=== PATIENT | female | born 2005 | race Caucasian/White ===

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

== ENCOUNTER 2024-09-13 22:15 | Observation (INO) | payer MEDICAID, SELFPAY ==
[2024-09-13 22:17] VITALS: BP 129/76; PULSE 59; RESP 18; TEMP 36.7; O2SAT 100; BMI 38.5
[2024-09-14] VITALS (10 sets, daily range): BP systolic 114–158; BP diastolic 64–109; PULSE 53–90; RESP 17–18; TEMP 36.6–36.8; O2SAT 94–100; BMI 38.5
[2024-09-14] MEDS: ondansetron 2 mg/ML SDV 2 mL 4 MG IVP (03:05)
[2024-09-14] MEDS: ketorolac 30 mg/mL INJ IVP (03:05)
[2024-09-14 03:24] LABS: Basophils # 0.1 10^3/uL (0.0-0.1); Basophils % 0.3 %; Hematocrit 35.5 % (36-47); Lymphocytes # 1.4 10^3/uL (0.8-4.8); Lymphocytes % 8.1 %; Mean Corpuscular HGB Conc 27.3 g/dL (30-55); Mean Corpuscular Hemoglobin 18.3 pg (27-33); Mean Corpuscular Volume 67.1 fl (85-98); Mean Platelet Volume 8.5 fL (7.4-10.4); Monocytes # 0.6 10^3/uL (0.2-0.9); Monocytes % 3.3 %; Neutrophils # 14.77 10^3/uL (1.8-7.7); Neutrophils % 87.8 %; Nucleated Red Blood Cells % 0 %; Platelet Count 637 10^3/cmm (157-399); Red Blood Count 5.29 10^6/uL (3.85-5.65); Red Cell Distribution Width 17.4 % (12.1-15.1); White Blood Count 16.82 10^3/uL (3.29-11.43)
--- NOTE | 2024-09-14 03:29 | W.ED.ABDPA2 ---
HPI - Abdominal Pain General: Chief Complaint: Abdominal Pain Stated Complaint: Gall bladder stones pain in ribs going up in back Time Seen by Provider: 09/14/24 02:39 History of Present Illness: 19-year-old female who says she has been diagnosed with gallstones. She presents with right upper quadrant and epigastric pain radiating to her back. She states she has had the pain for around 12 hours or more. This is the longest bout she has had. She has an appointment with surgery on 09/24 for consultation. She has vomited once. No fever. No diarrhea. No history of abdominal surgery. Related Data Date of Last Menstrual Period: 07/15/24 Home Medications ?Medication ?Instructions ?Recorded ?Confirmed ibuprofen 800 mg tablet 800 mg PO Q8H PRN Pain 09/14/24 09/14/24 levothyroxine 75 mcg tablet 75 mcg PO DAILY 09/14/24 09/14/24 Allergies Allergy/AdvReac Type Severity Reaction Status Date / Time No Known Allergies Allergy Verified 08/14/19 11:16 PFS ED PFSH: Social History (Updated 09/14/24 @ 07:29 by Marcus Roque MD) Smoking and tobacco/nicotine status: never used tobacco/nicotine Alcohol intake: current Alcohol intake frequency: few times a week Substance/Drug Use: former Date of last use: Rare Former substance use details: Says smoking weed makes her sick edibles are okay but she does not use much Additional social history: Patient vapes daily. She wants DNR status as discussed today on 09/14/2024 with Marcus Roque MD Female Reproductive History: Date of last menstrual period: 07/15/24 Physical Exam Const: COMMON NORMALS: no acute distress GENERAL APPEARANCE: cooperative; not ill appearing and not frail appearing HENMT: COMMON NORMALS: normocephalic, atraumatic and Normal external nose present HEAD & SCALP: normocephalic and atraumatic FACE & SINUS: normal facial exam and face symmetric NOSE: Normal external nose present Eye: COMMON NORMALS: Equal, round and reactive pupils present and EOMs intact bilaterally PUPIL: Yes Equal, round and reactive pupils present Neck/C-Spine: GENERAL: Yes trachea midline Chest: CHEST: Yes Symmetrical chest wall rise Resp: COMMON NORMALS: normal respiratory effort, No retractions, No use of accessory muscles and clear to auscultation bilaterally AUSCULTATION: clear to auscultation bilaterally Cardio: COMMON NORMALS: regular rate and regular rhythm RATE: regular rate RHYTHM: regular rhythm GI: COMMON NORMALS: Soft to palpation INSPECTION: Yes normal to inspection AUSCULTATION: Yes normoactive bowel sounds PALPATION: Yes Soft to palpation, Yes Tenderness to palpation present (GI) (Epigastric) and No Guarding due to palpation present (GI) Extremity: COMMON NORMALS: no pedal edema Neuro: ANGI COMA SCALE: document GCS findings Angi coma scale eye opening: Spontaneous [place] coma scale verbal response: Orientated [place] coma scale motor response: Obey commands [place] coma scale total score: 15 SENSORY EXAM: Yes extremities (intact) Psych: COMMON NORMALS: speech normal SPEECH: Yes normal speech Skin: COMMON NORMALS: no rashes or lesions noted GENERAL SKIN EXAM: no rashes or lesions noted Course Vital Signs: Vital signs: Vital Signs Temperature 98.3 F 09/15/24 04:08 Pulse Rate 72 09/15/24 04:08 Respiratory Rate 18 09/15/24 04:08 Blood Pressure 116/75 09/15/24 04:08 Pulse Oximetry 95 09/15/24 04:08 Oxygen Delivery Me thod Room Air 09/14/24 15:51 MDM - Abdominal Pain Medical Decision Making Pain is improved currently. She is given IV Toradol and Zofran. Laboratories pending. White blood cell count is 17, 87% neutrophils. Hemoglobin is 9.7. Lipase is 2900. CRP however is only 8.3. Liver enzymes are slightly elevated, but bilirubin is normal at 1.1. CT of the abdomen pelvis is pending. CT shows uncomplicated pancreatitis. The patient will be admitted. Hospitalist is aware and will see the patient. Lab Data 09/14/24 03:18 09/14/24 03:18 Labs/Radiology: Radiology Impressions Abdomen/Pelvis CT 09/14/24 04:40 IMPRESSION: Acute uncomplicated interstitial pancreatitis. Abdomen Ultrasound 09/14/24 07:18 IMPRESSION: Multiple gallstones with borderline gallbladder wall thickening Cholangiopancreatography MRI 09/14/24 16:20 IMPRESSION: 1. Pancreatic edema with fluid tracking along the dula-nmvnkoa-kkbc-right peritoneal reflections consistent with acute pancreatitis. 2. No evidence of choledocholithiasis. 3. Cholelithiasis without CT evidence of cholecystitis. Laboratory Results WBC 16.82 10^3/uL (3.29-11.43) H 09/14/24 03:18 RBC 5.29 10^6/uL (3.85-5.65) 09/14/24 03:18 Hgb 9.70 g/dL (11.27-16.99) L 09/14/24 03:18 Hct 35.5 % (36-47) L 09/14/24 03:18 MCV 67.1 fl (85-98) L 09/14/24 03:18 MCH 18.3 pg (27-33) L 09/14/24 03:18 MCHC 27.3 g/dL (30-55) L 09/14/24 03:18 RDW 17.4 % (12.1-15.1) H 09/14/24 03:18 Plt Count 637 10^3/cmm (157-399) H 09/14/24 03:18 MPV 8.5 fL (7.4-10.4) 09/14/24 03:18 Neut % (Auto) 87.8 % 09/14/24 03:18 Lymph % (Auto) 8.1 % 09/14/24 03:18 [place] % (Auto) 3.3 % 09/14/24 03:18 Eos % (Auto) 0.0 % 09/14/24 03:18 Baso % (Auto) 0.3 % 09/14/24 03:18 Neut # (Auto) 14.77 10^3/uL (1.8-7.7) H 09/14/24 03:18 Lymph # (Auto) 1.4 10^3/uL (0.8-4.8) 09/14/24 03:18 [place] # (Auto) 0.6 10^3/uL (0.2-0.9) 09/14/24 03:18 Eos # (Auto) 0.0 10^3/uL (0.0-0.8) 09/14/24 03:18 Baso # (Auto) 0.1 10^3/uL (0.0-0.1) 09/14/24 03:18 Nucleated RBC % (auto) 0 % 09/14/24 03:18 Nucleated RBCs # 0.0 /100WBC 09/14/24 03:18 Sodium 138 mmol/L (136-145) 09/14/24 03:18 Potassium 4.2 mmol/L (3.5-5.1) 09/14/24 03:18 Chloride 99 mmol/L (98-107) 09/14/24 03:18 Carbon Dioxide 25 mmol/L (22-29) 09/14/24 03:18 Anion Gap 18.2 (5-19) 09/14/24 03:18 BUN 8 mg/dL (6-20) 09/14/24 03:18 Creatinine 0.6 mg/dL (0.5-0.9) 09/14/24 03:18 GFR Calculation 126.2 mL/min (90-130) 09/14/24 03:18 Glucose 102 mg/dL (65-115) 09/14/24 03:18 Calculated Osmolality 285 mOsm/kg (285-295) 09/14/24 03:18 Calcium 9.8 mg/dL (8.5-10.5) 09/14/24 03:18 Total Bilirubin 1.1 mg/dL (0.15-1.2) 09/14/24 03:18 AST 144 U/L (0-32) H 09/14/24 03:18 ALT 79 U/L (0-33) H 09/14/24 03:18 Alkaline Phosphatase 144 U/L (35-105) H 09/14/24 03:18 C-Reactive Protein 8.3 mg/L (0.0-4.9) H 09/14/24 03:18 Total Protein 9.3 g/dL (6.6-8.7) H 09/14/24 03:18 Albumin 4.6 g/dL (3.5-5.2) 09/14/24 03:18 Globulin 4.7 g/dL (1.3-4.6) H 09/14/24 03:18 Triglycerides 55 mg/dL (0-150) 09/14/24 03:18 Lipase 2863 U/L (13-60) H 09/14/24 03:18 HCG, Qual Negative (Negative) 09/14/24 03:18 Urine Color Dark yellow (Yellow) A 09/13/24 10:04 Urine Appearance Clear (CLEAR) 09/13/24 10:04 Urine pH 6.5 (5-7) 09/13/24 10:04 Ur Specific [place] 1.063 (1.005-1.030) H 09/13/24 10:04 Urine Protein 1+ (Negative) A 09/13/24 10:04 Urine Glucose (UA) Negative (Normal) 09/13/24 10:04 Urine Ketones Trace (Negative) 09/13/24 10:04 Urine Blood Negative (Negative) 09/13/24 10:04 Urine Nitrate Negative (Negative) 09/13/24 10:04 Urine Bilirubin 1+ (Negative) H 09/13/24 10:04 Urine Urobilinogen 2.0 mg/dL (Negative) H 09/13/24 10:04 Ur Leukocyte Esterase Negative (Negative) 09/13/24 10:04 Urine RBC 0-4 /hpf (0-2) H 09/13/24 10:04 Urine WBC 0-4 /hpf (0-5) H 09/13/24 10:04 Ur Squamous Epith Cells 0-4 /hpf (0-5) H 09/13/24 10:04 Amorphous Sediment Not Reportable 09/13/24 10:04 Urine Bacteria Trace /hpf (NONE) 09/13/24 10:04 Hyaline Casts 2.46 /lpf 09/13/24 10:04 Hepatitis C Antibody Non-reactive (Nonreactive) 09/14/24 03:18 HIV 1&2 Ab & HIV 1 Ag Non-reactive (Non-Reactiv) 09/14/24 03:18 HIV 1&2 Antibody Non-reactive (Non-Reactiv) 09/14/24 03:18 All radiology interpretation(s) finalized by discharge Discharge Plan Discharge Patient Disposition: Admitted As Inpatient Admit Provider: Marcus Roque Clinical Impression: Pancreatitis Condition: Stable Coding Level of Care Code ED Etymology Professor for Fabiola Crystal
[2024-09-14 04:31] LABS: Alanine Aminotransferase 79 U/L (0-33); Albumin Level 4.6 g/dL (3.5-5.2); Alkaline Phosphatase 144 U/L (35-105); Aspartate Amino Transferase 144 U/L (0-32); Blood Urea Nitrogen 8 mg/dL (6-20); C Reactive Protein 8.3 mg/L (0.0-4.9); Calcium 9.8 mg/dL (8.5-10.5); Carbon Dioxide 25 mmol/L (22-29); Creatinine Clr Calc Pharmacy 184.5856; Globulin 4.7 g/dL (1.3-4.6); Glomerular Filtration Rate 126.2 mL/min (90-130); Glucose 102 mg/dL (65-115); Total Bilirubin 1.1 mg/dL (0.15-1.2); Total Protein 9.3 g/dL (6.6-8.7)
[2024-09-14 04:40] LABS: Lipase 2863 U/L (13-60)
--- NOTE | 2024-09-14 04:40 | CTR_ITS ---
PROCEDURE INFORMATION: Exam: CT Abdomen And Pelvis With Contrast Exam date and time: 09/14/2024 4:56 AM Age: 19 years old Clinical indication: Pain and abnormal findings; Abnormal lab test; Elevated lipase and elevated liver enzymes and elevated wbc; Abdominal pain; Ruq/epigastric pain with elevated wbc, lipase, and liver enzymes. ; Additional info: Ruq and epigastric pain TECHNIQUE: Imaging protocol: Computed tomography of the abdomen and pelvis with contrast. Radiation optimization: All CT scans at this facility use at least one of these dose optimization techniques: automated exposure control; mA and/or kV adjustment per patient size (includes targeted exams where dose is matched to clinical indication); or iterative reconstruction. Contrast material: OMNI 350; Contrast volume: 100 ml; Contrast route: INTRAVENOUS (IV); COMPARISON: No relevant prior studies available. RADIATION DOSE METRICS: Total DLP (mGy-cm): 1012.25 FINDINGS: Liver: Normal appearance of the liver. Gallbladder and biliary ducts: No calcified stones or ductal dilation. Pancreas: Peripancreatic fat stranding, predominantly about the pancreatic body and tail. No necrosis. No ductal dilation. No drainable fluid collection. Spleen: Unremarkable. Adrenal glands: Unremarkable. Kidneys and ureters: No hydronephrosis. Stomach and bowel: No obstruction. No mucosal thickening. Appendix: Normal appendix. Intraperitoneal space: No free air. No significant fluid collection. Vasculature: Unremarkable. Lymph nodes: No enlarged lymph nodes. Urinary bladder: Unremarkable as visualized. Reproductive: Unremarkable as visualized. Bones/joints: Unremarkable. No acute fracture. Soft tissues: See Pancreas finding. CT/CT abdomen pelvis w con* [id number] IMPRESSION: Acute uncomplicated interstitial pancreatitis.
[2024-09-14 04:41] LABS: HCG, Serum Qual Negative (Negative)
[2024-09-14] MEDS: iohexol 350 mg/mL 500 mL Btl (per mL) IV (04:57)
[2024-09-14 05:49] LABS: Anion Gap 18.2 (5-19); Chloride 99 mmol/L (98-107); Osmolality Calculated 285 mOsm/kg (285-295); Potassium 4.2 mmol/L (3.5-5.1); Sodium 138 mmol/L (136-145)
--- NOTE | 2024-09-14 07:18 | USR_ITS ---
PROCEDURE INFORMATION: Exam: US Abdomen, Limited; Right Upper Quadrant Exam date and time: 09/14/2024 2:34 PM Age: 19 years old Clinical indication: Condition or disease; Pancreatic condition; Pancreatitis; Additional info: Pancreatitis. Look for gallstones TECHNIQUE: Imaging protocol: Real time ultrasound of the abdomen with image documentation. Limited exam focused on the right upper quadrant. COMPARISON: CT abdomen pelvis w con* [id number] 09/14/2024 4:56 AM FINDINGS: Liver: Normal. No masses. Gallbladder: Multiple gallstones. Borderline thickening of the gallbladder wall at 3 mm Biliary ducts: Normal. No stones. No dilation. Pancreas: Obscured by overlying bowel. Right kidney: Normal. No mass. No hydronephrosis. US/US abdomen limited [id number] IMPRESSION: Multiple gallstones with borderline gallbladder wall thickening
--- NOTE | 2024-09-14 07:20 | P.HP_ITS ---
Providers/Chief Complaint 2 Admitting Physician: Marcus Roque MD Chief Complaint: Gall bladder stones pain in ribs going up in back History of Present Illness Yamini Savage is a 19 year old female with history of episodic abdominal pain after eating or bedtime for about a year. She states that typically lasts only 2 to 3 hours with her waiting it out or taking ibuprofen. She is not certain that ibuprofen helps but thinks that psychologically it is at least doing something. Pain is notably brought on by eating beef for spicy food but less with eating chicken. Patient states that for the last 12 hours prior to presentation to the emergency department she had chills hot flashes sweats and 8/10 epigastric pain now down to 4/10. She had been to [facility] where ultrasound showed gallstones but her CT scan done today showed pancreatitis without gallstones. Patient is not an alcoholic and has about 2 beverages with [address] weekly[address] Fuentes noted her LFTs to be elevated AST 144 ALT 79 alk phos 144 bilirubin 1.1 lipase 2863 and has made her n.p.o. and referred her for admission. Patient states she has had weight loss this year 300 pounds down to 236 just not eating well and getting nausea after eating she reports bad GERD for which she takes Tums but has not taken a PPI. Past surgical history none family history mom is an addict to everything. Patient wants DNR status as discussed today she states that she is not particularly depressed but has some depression. She also just does not want a chance of having brain injury or going through CPR. I talked with her briefly about the risks and benefits. She denies suicidal ideation Review of Systems 2 Narrative: General positive for weight loss reported 64 pounds in the last year. She has had f chills hot flashes and sweats but no fevers CV no chest pain palpitations or edema Respiratory no shortness of breath cough wheezing GI positive for nausea just before vomiting but not nausea all the time. This seems to be worse with food especially beef or spicy food. 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 or discharge Neuro no seizures strokes limb weakness Medications/Allergies Allergies Allergy/AdvReac Type Severity Reaction Status Date / Time No Known Allergies Allergy Verified 08/14/19 11:16 PFSH Acute 2 PFSH: Social History (Updated 09/14/24 @ 07:29 by Marcus Roque MD) Smoking and tobacco/nicotine status: never used tobacco/nicotine Alcohol intake: current Alcohol intake frequency: few times a week Substance/Drug Use: former Date of last use: Rare Former substance use details: Says smoking weed makes her sick edibles are okay but she does not use much Additional social history: Patient vapes daily. She wants DNR status as discussed today on 09/14/2024 with Marcus Roque MD Female Reproductive History: Date of last menstrual period: 07/15/24 Vitals/I&O/Wt Last Vital Signs Temp 98.1 F 09/13/24 22:17 Pulse 70 09/14/24 06:21 Resp 18 09/14/24 03:05 BP 151/109 09/14/24 06:21 Pulse Ox 100 09/14/24 07:11 O2 Del Method Room Air 09/14/24 07:11 Weight last 48 hrs Weight 108.136 kg Physical Exam 2 Narrative: General Well-developed well-nourished obese female in no acute cardiopulmonary stress CV regular rate and rhythm Lungs clear to auscultation bilaterally Abdomen positive bowel tones but diminished she has mild epigastric tenderness but does report pain Mood and affect appropriate good eye contact Data 09/14/24 03:18 09/14/24 03:18 A&P PDMP PDMP Reviewed: Not Reviewed Attestations 2 Medical Necessity Statement*: Patient will be admitted to the hospital with bowel rest and IV fluids and pain control anticipate to span greater than 2 midnights Coding Level of Care Code 29160 Time Spent (min) 55
[2024-09-14 10:16] LABS: Bilirubin Urine 1+ (Negative); Blood Urine Negative (Negative); Glucose Urine UA Negative (Normal); Ketones Urine Trace (Negative); Leukocyte Esterase Urine Negative (Negative); Nitrate Urine Negative (Negative); Protein Urine 1+ (Negative); Urine Appearance Clear (CLEAR); Urine Color Dark Yellow (Yellow); pH Urine 6.5 (5-7)
[2024-09-14 10:25] LABS: Add Urine Microscopic? YES; Bacteria Urine TRACE /hpf; RBC Urine 0-4 /hpf (0-2); Specific Gravity, Urine 1.063 (1.005-1.030); Squamous Epithelial Cell Urine 0-4 /hpf (0-5); WBC Urine 0-4 /hpf (0-5)
[2024-09-14 10:26] LABS: Hyaline Casts Urine 2.46 /lpf
[2024-09-14] MEDS: pantoprazole 40 mg SDV IVP (12:41)
[2024-09-14] MEDS: enoxaparin 40 mg/0.4 mL Syringe SUBCUT (12:41)
[2024-09-14] MEDS: sodium chlor 0.9% + KCl 20 mEq 20 MEQ/1,000 ML BAG 125 MEQ IV ×2 (12:41→21:14)
--- NOTE | 2024-09-14 14:28 | PC.NURSE ---
Pt has a positive suicide risk assessment. States, I don't have a plan, but I wouldn't care if it happened. States dying is an ongoing thought and has been since she was 14. States she has had approximately six suicide attempts by OD. States she struggled academically--particularly math but was unable to receive help and feelings spiraled from there. Wishes to locate counselor but keeps putting it off. Flat affect. States parents both struggle with mental health issues but neither has received treatment. Dr Chatman notified.
--- NOTE | 2024-09-14 16:20 | MRR_ITS ---
PROCEDURE INFORMATION: Exam: MR Abdomen Without Contrast, Biliary System Exam date and time: 09/14/2024 4:47 PM Age: 19 years old Clinical indication: Abdominal pain; Localized; Upper; Additional info: Gallstone pancreatitis, assess for biliary obstrcution TECHNIQUE: Imaging protocol: MR of the abdomen without contrast. Exam focused on the biliary system and pancreatic ducts. Routine 3D-MRCP images were acquired and processed without radiologist supervision. COMPARISON: CT abdomen pelvis w con* [id number] 09/14/2024 4:56 AM FINDINGS: Liver: No mass. Gallbladder and biliary ducts: Gallstones are identified within the gallbladder. No definitive gallbladder wall thickening. No evidence of pericholecystic inflammatory change. No evidence of intra or extrahepatic ductal dilatation. No filling defects along the course of the common bile duct to suggest choledocholithiasis. Pancreas: Dnsz-no-zrmyfqpo peripancreatic edema consistent with history of pancreatitis. Spleen: The spleen is normal. Intraperitoneal space: Risk-ap-joodnpgk free fluid tracking along the left retroperitoneal reflection related to pancreatitis. No fluid collection. MR/MR MRCP [id number] IMPRESSION: 1. Pancreatic edema with fluid tracking along the mzii-zcqigrf-tgrb-right peritoneal reflections consistent with acute pancreatitis. 2. No evidence of choledocholithiasis. 3. Cholelithiasis without CT evidence of cholecystitis.
--- NOTE | 2024-09-14 16:21 | PM.MISC ---
Miscellaneous Note Purpose of Documentation: Labs and H&P reviewed from this morning. Patient with gallstone pancreatitis. Continue current management with IV fluids, pain control with morphine and as needed hydrocodone with as needed Toradol. Maintain n.p.o. status. MRCP ordered. Of elevated alkaline phosphatase, borderline gallbladder wall thickening noted on ultrasound. Check triglyceride level. Resume levothyroxine 75 mg p.o. daily
[2024-09-14 16:37] LABS: Triglycerides 55 mg/dL (0-150)
[2024-09-14 19:23] LABS: HIV 1 & 2 Antibody Non-Reactive (Non-Reactiv); HIV 1 & 2 Antigen Non-Reactive (Non-Reactiv)
[2024-09-15 00:01] LABS: Hepatitis C Virus Antibody Non-Reactive (Nonreactive)
[2024-09-15] MEDS: sodium chlor 0.9% + KCl 20 mEq 20 MEQ/1,000 ML BAG 125 MEQ IV ×3 (03:02→20:38)
[2024-09-15 04:08] VITALS: BP 116/75; PULSE 72; RESP 18; TEMP 36.8; O2SAT 95
[2024-09-15 05:37] LABS: Basophils % 0.3 %; Eosinophils # 0.1 10^3/uL (0.0-0.8); Hematocrit 30.2 % (36-47); Lymphocytes # 3.2 10^3/uL (0.8-4.8); Lymphocytes % 31.3 %; Mean Corpuscular HGB Conc 26.8 g/dL (30-55); Mean Corpuscular Hemoglobin 18.7 pg (27-33); Mean Corpuscular Volume 69.6 fl (85-98); Mean Platelet Volume 8.4 fL (7.4-10.4); Monocytes # 0.5 10^3/uL (0.2-0.9); Monocytes % 4.8 %; Neutrophils # 6.39 10^3/uL (1.8-7.7); Neutrophils % 62.3 %; Nucleated Red Blood Cells % 0 %; Platelet Count 433 10^3/cmm (157-399); Red Blood Count 4.34 10^6/uL (3.85-5.65); Red Cell Distribution Width 17.5 % (12.1-15.1); White Blood Count 10.25 10^3/uL (3.29-11.43)
[2024-09-15 05:59] LABS: Alanine Aminotransferase 106 U/L (0-33); Albumin Level 3.5 g/dL (3.5-5.2); Alkaline Phosphatase 127 U/L (35-105); Anion Gap 13.5 (5-19); Aspartate Amino Transferase 91 U/L (0-32); Blood Urea Nitrogen 9 mg/dL (6-20); Calcium 8.5 mg/dL (8.5-10.5); Carbon Dioxide 23 mmol/L (22-29); Chloride 107 mmol/L (98-107); Creatinine Clr Calc Pharmacy 184.4161; Globulin 3.5 g/dL (1.3-4.6); Glomerular Filtration Rate 126.2 mL/min (90-130); Glucose 76 mg/dL (65-115); Osmolality Calculated 285 mOsm/kg (285-295); Phosphorus 3.8 mg/dL (2.5-4.5); Potassium 4.5 mmol/L (3.5-5.1); Sodium 139 mmol/L (136-145); Total Bilirubin 0.5 mg/dL (0.15-1.2)
[2024-09-15 06:15] LABS: Hepatitis A Antibody IgM Non-Reactive (Nonreactive); Hepatitis B Core AB, Total Non-Reactive (Nonreactive); Hepatitis B Surface AB 9.7 (11.5-1000); Hepatitis B Surface Antigen Non-Reactive (Nonreactive); Hepatitis C Virus Antibody Non-Reactive (Nonreactive)
[2024-09-15 06:40] LABS: Lipase 377 U/L (13-60)
[2024-09-15 07:38] VITALS: BP 118/78; PULSE 104; RESP 17; TEMP 36.6; O2SAT 96
[2024-09-15] MEDS: levothyroxine 75 mcg Tablet PO (08:43)
--- NOTE | 2024-09-15 09:54 | PC.CHAP ---
Pastoral Care Encounter/Spiritual Assessment Type of Contact [] Declined software product manager visit [] Patient/Family/Request visit [] Outpatient visit [] Follow-up visit [] Physician referral [] Code/Alert [x] Routine visit [] Staff referral [] Actively dying [] Patient sleeping [] Family support [] [] Out of room [] Palliative care [] [] Receiving care in room [] Pre-surgical visit [] Trauma [] Long length of stay [] ICU visit [] Other: Relational/Emotional Strength [] Patient feels connected with others/family/visitors/staff [] Distress [] Loneliness/isolation [] Abandonment Spirituality of Patient [x] Person of Dena [] Attends Episcopalian of their Dena [x] Believes in Prayer [] Reads Bible or Church materials [] There are Spiritual issues to be addressed Career Coach Interventions [x] Prayer [x] Active listening [] Non-anxious presence [] Spiritual/emotional support [] Crisis/trauma care [] Spiritual counseling [] Bereavement support [] Provided bereavement packet [x] Provided Bible/devotional materials [] Provided toy/stuffed animal, coloring book to patient or family member [] Provided Communion [] Anointing/[place] [] Salvation [x] Completed spiritual assessment [] Other: Impact on Illness or Injury [] Angry [] Fearful [] Anxious [] Often cries [] Exhaustion [] Unable to work [] Unable to attend hindu [] Unable to walk/stand [] Unable to read [] Unable to drive [] Unable to eat/drink [] Unable to sleep [] Unable to be with family [] Patient intubated [] Other: Summary Time spent with patient 5 min
[2024-09-15 11:38] VITALS: BP 143/81; PULSE 89; RESP 16; TEMP 36.8; O2SAT 93
[2024-09-15] MEDS: pantoprazole 40 mg SDV IVP (11:56)
[2024-09-15] MEDS: enoxaparin 40 mg/0.4 mL Syringe SUBCUT (11:56)
--- NOTE | 2024-09-15 14:43 | P.PN_ITS ---
Subjective 2 Subjective: Seen this morning. Patient has been depressed. Does not have an active plan of suicide however has had suicidal ideation. Is agreeable to meet with psychiatry. Vitals/I&O/Wt Last Vital Signs Temp 98.3 F 09/15/24 11:38 Pulse 89 09/15/24 11:38 Resp 16 09/15/24 11:38 BP 143/81 09/15/24 11:38 Pulse Ox 93 09/15/24 11:38 O2 Del Method Room Air 09/15/24 11:38 09/14/24 09/15/24 09/15/24 22:59 06:59 14:59 Intake Total 1000 / 1000 725 / 1725 2697.917 / 2697.917 Balance 1000 / 1000 725 / 1725 2697.917 / 2697.917 Weight last 48 hrs Weight 107.955 kg Weight 108.125 kg Weight 108.136 kg Physical Exam 2 Narrative: General Well-developed well-nourished obese female in no acute cardiopulmonary stress CV regular rate and rhythm Lungs clear to auscultation bilaterally Abdomen positive bowel tones but diminished she has mild epigastric tenderness but does report pain Mood and affect appropriate good eye contact Data 09/15/24 05:16 09/15/24 05:16 A&P Assessment and plan (1) Pancreatitis: (2) Depression: Plan #Acute pancreatitis #Gallstones #Depression/suicidal ideation #Hypothyroidism ? Continue levothyroxine 75 daily ? Borderline gallbladder wall thickening noted on ultrasound ? Triglycerides: 55 ? Continue IV fluids. ? Patient has been tolerating clear liquids Switch to full liquids for dinner. Consult psychiatry. If patient able to tolerate a diet we will consider discharge in next 24 to 48 hours. Will need general surgery consultation outpatient for evaluation for cholecystectomy. PDMP PDMP Reviewed: Not Reviewed Attestations 2 Medical Necessity Statement*: Patient will be admitted to the hospital with bowel rest and IV fluids and pain control anticipate to span greater than 2 midnights Diagnoses Pancreatitis K85.90 Depression F32.A
[2024-09-15 15:43] VITALS: BP 125/82; PULSE 67; RESP 16; TEMP 36.9; O2SAT 99
[2024-09-15 21:20] VITALS: BP 143/84; PULSE 98; RESP 17; TEMP 36.6; O2SAT 95
[2024-09-16 00:11] VITALS: BP 144/82; PULSE 99; RESP 18; TEMP 36.6; O2SAT 95
[2024-09-16] MEDS: sodium chlor 0.9% + KCl 20 mEq 20 MEQ/1,000 ML BAG 125 MEQ IV (03:59)
[2024-09-16 04:28] VITALS: BP 146/81; PULSE 78; RESP 18; TEMP 36.8; O2SAT 96
[2024-09-16 06:05] LABS: Basophils % 0.2 %; Eosinophils # 0.1 10^3/uL (0.0-0.8); Eosinophils % 0.6 %; Lymphocytes # 3.2 10^3/uL (0.8-4.8); Lymphocytes % 28.8 %; Mean Corpuscular HGB Conc 27.2 g/dL (30-55); Mean Corpuscular Hemoglobin 18.3 pg (27-33); Mean Corpuscular Volume 67.1 fl (85-98); Mean Platelet Volume 8.9 fL (7.4-10.4); Monocytes # 0.6 10^3/uL (0.2-0.9); Monocytes % 5.5 %; Neutrophils # 7.06 10^3/uL (1.8-7.7); Neutrophils % 64.5 %; Nucleated Red Blood Cells % 0 %; Platelet Count 429 10^3/cmm (157-399); Red Blood Count 4.32 10^6/uL (3.85-5.65); Red Cell Distribution Width 17.2 % (12.1-15.1); White Blood Count 10.94 10^3/uL (3.29-11.43)
[2024-09-16 06:24] LABS: Alanine Aminotransferase 68 U/L (0-33); Albumin Level 3.7 g/dL (3.5-5.2); Alkaline Phosphatase 120 U/L (35-105); Anion Gap 16.9 (5-19); Aspartate Amino Transferase 35 U/L (0-32); Blood Urea Nitrogen 5 mg/dL (6-20); Calcium 8.8 mg/dL (8.5-10.5); Carbon Dioxide 23 mmol/L (22-29); Chloride 105 mmol/L (98-107); Creatinine Clr Calc Pharmacy 184.4161; Globulin 3.9 g/dL (1.3-4.6); Glomerular Filtration Rate 126.2 mL/min (90-130); Glucose 75 mg/dL (65-115); Osmolality Calculated 288 mOsm/kg (285-295); Potassium 3.9 mmol/L (3.5-5.1); Sodium 141 mmol/L (136-145); Total Bilirubin 0.4 mg/dL (0.15-1.2); Total Protein 7.6 g/dL (6.6-8.7)
[2024-09-16 07:20] VITALS: BP 116/72; PULSE 82; RESP 19; TEMP 37; O2SAT 97
[2024-09-16] MEDS: levothyroxine 75 mcg Tablet PO (09:02)
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
[2024-09-16 11:14] VITALS: BP 133/86; PULSE 68; RESP 18; TEMP 36.9; O2SAT 99
--- NOTE | 2024-09-16 11:57 | PM.DCS ---
Discharge Providers Date of Admission: 09/14/24 06:45 Date of Discharge: September 16, 2024 Attending Provider at Admission: Marcus Roque MD Attending Provider at Discharge: Evelin Costa MD Diagnoses at Discharge Discharge Diagnosis (1) MDD (major depressive disorder), single episode, severe , no psychosis: Status: Acute Reason for Visit Reason for Visit: Gall bladder stones pain in ribs going up in back Hospital Course Hospital Course Patient was admitted to the hospital with pancreatitis most likely due to gallstones. Imaging studies noted below. No biliary dilatation noted on MRCP. Patient was offered standard treatment with IV fluids and bowel rest. She was able to tolerate GI soft diet prior to discharge. Discussed with general surgeon on-call and discussed findings of imaging study. He recommended to have patient follow-up as an outpatient for scheduled cholecystectomy going forward. Discussed with patient she will be given referral to surgeon outpatient. Secondly she also had diagnosis of depression and suicidal ideation in the past. She was seen by on-call psychiatrist and was recommended to start Prozac. She will be set up with outpatient therapy at the [facility]. Appointment for that is facilitated by the psychiatry team. All questions answered. Patient will be discharged in stable condition. Physical Exam Narrative: General Well-developed well-nourished obese female in no acute cardiopulmonary stress CV regular rate and rhythm Lungs clear to auscultation bilaterally Abdomen soft, nontender, bowel sounds present and positive. Mood and affect appropriate good eye contact Discharge Data Studies Completed and Pending Completed Studies During Hospitalization Category Date Time Status CT abdomen pelvis w con* [id number] Urgent Cat Scan 09/14/24 04:40 Completed MR MRCP [id number] Routine MRI 09/14/24 16:20 Completed US abdomen limited [id number] Stat Ultrasound 09/14/24 07:18 Completed Pending at discharge Category Date Time Status Comprehensive Metabolic Panel AM LABS Lab 09/17/24 04:00 Ordered Drug Tox Monit. Alcohol Metabo Routine Lab 09/14/24 10:04 Received Radiology Impressions Abdomen/Pelvis CT 09/14/24 04:40 IMPRESSION: Acute uncomplicated interstitial pancreatitis. Abdomen Ultrasound 09/14/24 07:18 IMPRESSION: Multiple gallstones with borderline gallbladder wall thickening Cholangiopancreatography MRI 09/14/24 16:20 IMPRESSION: 1. Pancreatic edema with fluid tracking along the [id number]-right peritoneal reflections consistent with acute pancreatitis. 2. No evidence of choledocholithiasis. 3. Cholelithiasis without CT evidence of cholecystitis. Laboratory Results WBC 10.94 10^3/uL (3.29-11.43) 09/16/24 05:11 RBC 4.32 10^6/uL (3.85-5.65) 09/16/24 05:11 Hgb 7.90 g/dL (11.27-16.99) L 09/16/24 05:11 Hct 29.0 % (36-47) L 09/16/24 05:11 MCV 67.1 fl (85-98) L 09/16/24 05:11 MCH 18.3 pg (27-33) L 09/16/24 05:11 MCHC 27.2 g/dL (30-55) L 09/16/24 05:11 RDW 17.2 % (12.1-15.1) H 09/16/24 05:11 Plt Count 429 10^3/cmm (157-399) H 09/16/24 05:11 MPV 8.9 fL (7.4-10.4) 09/16/24 05:11 Neut % (Auto) 64.5 % 09/16/24 05:11 Lymph % (Auto) 28.8 % 09/16/24 05:11 [place] % (Auto) 5.5 % 09/16/24 05:11 Eos % (Auto) 0.6 % 09/16/24 05:11 Baso % (Auto) 0.2 % 09/16/24 05:11 Neut # (Auto) 7.06 10^3/uL (1.8-7.7) 09/16/24 05:11 Lymph # (Auto) 3.2 10^3/uL (0.8-4.8) 09/16/24 05:11 [place] # (Auto) 0.6 10^3/uL (0.2-0.9) 09/16/24 05:11 Eos # (Auto) 0.1 10^3/uL (0.0-0.8) 09/16/24 05:11 Baso # (Auto) 0.0 10^3/uL (0.0-0.1) 09/16/24 05:11 Nucleated RBC % (auto) 0 % 09/16/24 05:11 Nucleated RBCs # 0.0 /100WBC 09/16/24 05:11 Sodium 141 mmol/L (136-145) 09/16/24 05:11 Potassium 3.9 mmol/L (3.5-5.1) 09/16/24 05:11 Chloride 105 mmol/L (98-107) 09/16/24 05:11 Carbon Dioxide 23 mmol/L (22-29) 09/16/24 05:11 Anion Gap 16.9 (5-19) 09/16/24 05:11 BUN 5 mg/dL (6-20) L 09/16/24 05:11 Creatinine 0.6 mg/dL (0.5-0.9) 09/16/24 05:11 GFR Calculation 126.2 mL/min (90-130) 09/16/24 05:11 Glucose 75 mg/dL (65-115) 09/16/24 05:11 Calculated Osmolality 288 mOsm/kg (285-295) 09/16/24 05:11 Calcium 8.8 mg/dL (8.5-10.5) 09/16/24 05:11 Phosphorus 3.8 mg/dL (2.5-4.5) 09/15/24 05:16 Magnesium 2.0 mg/dL (1.7-2.3) 09/16/24 05:11 Total Bilirubin 0.4 mg/dL (0.15-1.2) 09/16/24 05:11 AST 35 U/L (0-32) H 09/16/24 05:11 ALT 68 U/L (0-33) H 09/16/24 05:11 Alkaline Phosphatase 120 U/L (35-105) H 09/16/24 05:11 C-Reactive Protein 8.3 mg/L (0.0-4.9) H 09/14/24 03:18 Total Protein 7.6 g/dL (6.6-8.7) 09/16/24 05:11 Albumin 3.7 g/dL (3.5-5.2) 09/16/24 05:11 Globulin 3.9 g/dL (1.3-4.6) 09/16/24 05:11 Triglycerides 55 mg/dL (0-150) 09/14/24 03:18 Lipase 377 U/L (13-60) H 09/15/24 05:16 HCG, Qual Negative (Negative) 09/14/24 03:18 Urine Color Dark yellow (Yellow) A 09/13/24 10:04 Urine Appearance Clear (CLEAR) 09/13/24 10:04 Urine pH 6.5 (5-7) 09/13/24 10:04 Ur Specific [place] 1.063 (1.005-1.030) H 09/13/24 10:04 Urine Protein 1+ (Negative) A 09/13/24 10:04 Urine Glucose (UA) Negative (Normal) 09/13/24 10:04 Urine Ketones Trace (Negative) 09/13/24 10:04 Urine Blood Negative (Negative) 09/13/24 10:04 Urine Nitrate Negative (Negative) 09/13/24 10:04 Urine Bilirubin 1+ (Negative) H 09/13/24 10:04 Urine Urobilinogen 2.0 mg/dL (Negative) H 09/13/24 10:04 Ur Leukocyte Esterase Negative (Negative) 09/13/24 10:04 Urine RBC 0-4 /hpf (0-2) H 09/13/24 10:04 Urine WBC 0-4 /hpf (0-5) H 09/13/24 10:04 Ur Squamous Epith Cells 0-4 /hpf (0-5) H 09/13/24 10:04 Amorphous Sediment Not Reportable 09/13/24 10:04 Urine Bacteria Trace /hpf (NONE) 09/13/24 10:04 Hyaline Casts 2.46 /lpf 09/13/24 10:04 Hepatitis A IgM Ab Non-reactive (Nonreactive) 09/15/24 05:16 Hep Bs Antigen Non-reactive (Nonreactive) 09/15/24 05:16 Hep Bs Antibody 9.7 (11.5-1000) L 09/15/24 05:16 Hep B Core Total Ab Non-reactive (Nonreactive) 09/15/24 05:16 Hepatitis C Antibody Non-reactive (Nonreactive) 09/15/24 05:16 HIV 1&2 Ab & HIV 1 Ag Non-reactive (Non-Reactiv) 09/14/24 03:18 HIV 1&2 Antibody Non-reactive (Non-Reactiv) 09/14/24 03:18 Vitals Last Vital Signs Temp 98.4 F 09/16/24 11:14 Pulse 68 06/03/25 11:14 Resp 18 09/16/24 11:14 BP 133/86 09/16/24 11:14 Pulse Ox 99 09/16/24 11:14 O2 Del Method Room Air 09/16/24 11:14 Discharge Plan Discharge Patient Disposition: Home Condition: Stable Prescriptions: New fluoxetine 10 mg Capsule See Rx Instructions .ROUTE .COMPLEX 30 Days Qty: 30 1RF Rx Instructions: 10 mg daily x 3 days then increase dose to 20 mg daily Continued ibuprofen 800 mg tablet 800 mg PO Q8H PRN (Reason: Pain) levothyroxine 75 mcg tablet 75 mcg PO DAILY Discharge Orders: Discharge Order (Routine); Ordered 09/16/24 Ordered By: Evelin Costa Other Ambulatory Orders: Complete Blood Count w/Auto (Routine) Timeframe: 3 Days Location: Determined by Patient Ordered By: Evelin Costa Referrals: [facility] [Other] Referral Note: referral sent Nick Roper MD [Physician, General Surgery] - 10/07/24 9:00 am Referral Note: Candy Mcdonnell [Referring, Family Practice] - 09/19/24 9:20 am Referral Note: will be seeing crystal siddhartha Discharge Diet: GI Soft Discharge Activity: Resume usual activity Patient Instructions: Fluoxetine (By mouth), Pancreatitis (DC), Depression (DC), Opioid Safety Discharge Attestations Time Spent in Discharge Care*: greater than 30 min Quality Metrics Clinical Quality Measures [ No reported AMI, CVA or VTE this stay] Coding Level of Care Code Acute Code for [facility] Fwd Diagnoses MDD (major depressive disorder), single episode, severe , no psychosis F32.2
[2024-09-16] MEDS: pantoprazole 40 mg SDV IVP (12:16)
[2024-09-16] MEDS: enoxaparin 40 mg/0.4 mL Syringe SUBCUT (12:18)
[2024-09-16] MEDS: fluoxetine 10 mg Capsule PO (13:26)
--- NOTE | 2024-09-16 14:20 | PC.NURSE ---
Educated patient on following up with [facility] [employer] [facility] after discharge to discuss heave period flow and anemia. Also for patient to continue to take her antidepressant even if she doesn't feel any difference as it takes up to six weeks to take the full effect. Patient agreed. Referrals sent for [facility].
[2024-09-16 15:19] VITALS: BP 133/56; PULSE 68; RESP 18; TEMP 36.9; O2SAT 99
[2024-09-16 23:50] LABS: Alcohol Metabolites NEGATIVE ng/mL (<500)
== END 2024-09-16 15:20 | disposition home or self-care (01) ==
LOC: ER 09-14 07:16 → MEDSURG 09-14 14:51 → ER IP 09-19 16:19
PROVIDERS: Student in an Organized Health Care Education/Training Program; Admitting Provider Internal Medicine; Emergency Provider Emergency Medicine; Visit Provider Internal Medicine
DX: K85.90 Acute pancreatitis without necrosis or infection, unspecified (principal); K80.20 Calculus of gallbladder without cholecystitis without obstruction; E03.9 Hypothyroidism, unspecified; F32.2 Major depressive disorder, single episode, severe without psychotic features; R45.851 Suicidal ideations; Z79.890 Hormone replacement therapy; F17.290 Nicotine dependence, other tobacco product, uncomplicated; E66.9 Obesity, unspecified; Z68.38 Body mass index [BMI] 38.0-38.9, adult
CPT/HCPCS: 36415; 74177; 74181; 76705; 80053; 80307; 81001; 83690; 83735; 84100; 84478; 84703; 85025; 86140; 86705; 86706; 86709; 86803; 87340; 87806; 96372; 99285; G0378; J1650; J1885; J2405; J2470; J3480; J9999